=== PATIENT | male | born 2000 | race Caucasian/White ===

== ENCOUNTER 2020-02-22 19:23 | Emergency (ER) | payer OTHER ==
[~2020-02-22] VITALS: Ht 195.6 cm; Wt 90.7 kg
[2020-02-22 20:45] VITALS: BP 122/58
== END 2020-02-22 20:51 | disposition home or self-care (01) ==
LOC: ER 19:26
DX: S16.1XXA Strain of muscle, fascia and tendon at neck level, initial encounter (principal); T14.8XXA Other injury of unspecified body region, initial encounter; X58.XXXA Exposure to other specified factors, initial encounter; Y93.89 Activity, other specified; Y92.89 Other specified places as the place of occurrence of the external cause; Y99.8 Other external cause status
CPT/HCPCS: 72125